=== PATIENT | female | born 1995 | race Caucasian/White ===

== ENCOUNTER 2017-04-18 21:01 | Emergency (ER) | payer BC ==
[~2017-04-18] VITALS: Ht 154.9 cm; Wt 45.4 kg
[2017-04-18 21:01] VITALS: BP 111/69; PULSE 75; RESP 20; TEMP 98; O2SAT 100
[2017-04-18] MEDS ORDERED: PREDNISONE 20 MG TABLET PO ONE (22:00)
[2017-04-18 22:36] LABS: BASOPHILS % (AUTO) 0.6 % (0.0-2.0); EOSINOPHILS # (AUTO) 0.3 K/uL (0.0-0.4); EOSINOPHILS % (AUTO) 3.2 % (0.0-4.0); HEMATOCRIT 37.5 % (36-48); HEMOGLOBIN 12.7 g/dL (12.0-16.0); LYMPHOCYTES # (AUTO) 2.9 K/uL (1.0-5.5); LYMPHOCYTES % (AUTO) 36.8 % (20.5-51.5); MEAN CORPUSCULAR HEMOGLOBIN 31 pg (27-31); MEAN CORPUSCULAR HGB CONC 34 % (32-36); MEAN CORPUSCULAR VOLUME 90 fL (79.0-98.0); MONOCYTES # (AUTO) 0.6 K/uL (0.0-1.0); MONOCYTES % (AUTO) 7.4 % (1.7-9.3); NEUTROPHILS # (AUTO) 4.1 K/uL (1.8-7.7); PLATELET COUNT (AUTO) 278 K/uL (130-430); RED BLOOD CELL COUNT(AUTO) 4.16 MIL/uL (4.2-6.2); WHITE BLOOD COUNT (AUTO) 7.9 K/uL (4.5-11.0)
[2017-04-18 22:59] VITALS: BP 110/70; PULSE 70; RESP 18; TEMP 98.2; O2SAT 100
== END 2017-04-18 22:59 | disposition home or self-care (01) ==
LOC: SED 21:01
DX: L25.8 Unspecified contact dermatitis due to other agents (principal)
CPT/HCPCS: 36415; 85025; 99283; J7512

== ENCOUNTER 2019-07-16 15:06 | Emergency (ER) | payer BC ==
[~2019-07-16] VITALS: Ht 154.9 cm; Wt 59.9 kg
--- NOTE | 2019-07-16 15:06 | NUR ---
Patient to ER bed 06 to gown for evaluation. Side rails up.
--- NOTE | 2019-07-16 15:10 | NUR ---
Negin gabriel in [facility] - 07/16/19 at 1730 by [email or web address] Patient to [facility] 08 to wong for evaluation. Side rails up. .
--- NOTE | 2019-07-16 15:10 | NUR ---
Pt brought by self, A&O x4 , pt presents to ER with blood in the urine and lower abdominal pain 4/10 skin pink and warm, cap refill <3, VSS, respirations even and unlabored.
--- NOTE | 2019-07-16 15:12 | NUR ---
Dr Cox at bedside examining patient
[2019-07-16 15:15] VITALS: BP_SYST 125
[2019-07-16] MEDS ORDERED: NACL 0.9% 1,000 ML IV ONE (15:15)
--- NOTE | 2019-07-16 15:45 | NUR ---
Pt refused pelvic exam, Dr Cox notified.
[2019-07-16 15:50] LABS: BASOPHILS % (AUTO) 0.4 % (0.0-2.0); EOSINOPHILS # (AUTO) 0.1 K/uL (0.0-0.4); EOSINOPHILS % (AUTO) 1.5 % (0.0-4.0); HEMOGLOBIN 13.3 g/dL (12.0-16.0); LYMPHOCYTES # (AUTO) 2.4 K/uL (1.0-5.5); LYMPHOCYTES % (AUTO) 24.9 % (20.5-51.5); MEAN CORPUSCULAR HEMOGLOBIN 30 pg (27-31); MEAN CORPUSCULAR HGB CONC 33 % (32-36); MEAN CORPUSCULAR VOLUME 91 fL (79.0-98.0); MONOCYTES # (AUTO) 0.7 K/uL (0.0-1.0); MONOCYTES % (AUTO) 7.5 % (1.7-9.3); NEUTROPHILS # (AUTO) 6.4 K/uL (1.8-7.7); NEUTROPHILS % (AUTO) 65.7 % (40.0-70.0); PLATELET COUNT (AUTO) 309 K/uL (130-430); RED BLOOD CELL COUNT(AUTO) 4.41 MIL/uL (4.2-6.2); RED CELL DISTRIBUTION WIDTH 13.2 % (9.0-15.0); WHITE BLOOD COUNT (AUTO) 9.7 K/uL (4.8-10.8)
[2019-07-16 15:50] LABS: BILIRUBIN,URINE NEGATIVE (NEGATIVE); BLOOD, URINE 3+ (NEGATIVE); CLARITY/URINE SL HAZY (CLEAR); COLOR,URINE RED (YELLOW); GLUCOSE,URINE NEGATIVE (NEGATIVE); KETONES,URINE NEGATIVE (NEGATIVE); LEUKOCYTE ESTERASE ,URINE TRACE (NEGATIVE); NITRITE, URINE NEGATIVE (NEGATIVE); PH,URINE 7.5 (5.0-8.0); PROTEIN URINE 1+ (NEGATIVE); UROBILINOGEN,URINE 0.2 (0.2-1.0)
[2019-07-16 16:11] LABS: CREATININE 0.73 mg/dL (0.55-1.30); POTASSIUM 3.6 mmol/L (3.5-5.1)
[2019-07-16 16:15] LABS: ALBUMIN 3.8 g/dL (3.4-4.8); TOTAL BILIRUBIN 0.6 mg/dL (0.0-1.0)
[2019-07-16] MEDS ORDERED: cefTRIAXone 1 GM IVPB PREMIX 50 ML IV ONE ×2 (16:15→16:53)
[2019-07-16 16:20] LABS: INR 1.1 (0.8-1.2); PROTHROMBIN TIME 11.2 SECS (9.5-12.5)
[2019-07-16 16:42] LABS: BACTERIA,URINE FEW /HPF (None Seen); MUCUS,URINE None Seen /LPF (None Seen); RBC,URINE 50-80 /HPF (0-3)
[2019-07-16 17:20] VITALS: BP_SYST 121
--- NOTE | 2019-07-16 17:32 | NUR ---
Patient given written and verbal discharge instructions and verbalizes understanding. ER MD discussed with patient the results and treatment provided. Patient in stable condition. ID arm band removed. IV catheter removed intact and dressing applied, no active bleeding. Rx of Doxycicline and Naproxen given. Patient educated on pain management and to follow up with PMD. Pain Scale 2/10 tolerable for pt . Opportunity for questions provided and answered. Medication side effect fact sheet provided.
[2019-07-19 20:06] LABS: NEISSERIA GONORRHOEAE NAA Negative (Negative)
[2019-07-20 11:00] LABS: CHLAMYDIA TRACHOMATIS NAA Positive (Negative)
--- NOTE | 2019-07-20 11:05 | NUR ---
RECEIVED +CHLAMYDIA FROM [facility] IN LABORATORY, DISCUSSED CASE WITH DR STOREY AND PT WAS TREATED PROPERLY IN ER, NO FURTHER ACTIONS NEEDED. CALLED PT AT GIVEN NUMBER AND LEFT MESSAGE, PT IMMEDIATLY CALLED BACK. SPOKE WITH PT ABOUT HER TREATMENT AND TO NOTIFY ANY PARTNERS FOR TREATMENT. PT THANKED ME AND STATES SHE UNDERSTANDS
== END 2019-07-16 17:32 | disposition home or self-care (01) ==
LOC: SED 15:06
DX: N30.91 Cystitis, unspecified with hematuria (principal); N83.202 Unspecified ovarian cyst, left side; N83.201 Unspecified ovarian cyst, right side
CPT/HCPCS: 36415; 76856-TC; 80053; 81000-TC; 81025; 82150-TC; 83605; 83690-TC; 85025; 85610-TC; 85730-TC; 87040-TC; 87086; 87491; 87591; 96365; 99284; J0696; J7030